=== PATIENT | male | born 1955 | race Caucasian/White ===

== ENCOUNTER 2018-08-09 22:50 | Emergency (ER) | payer MEDICARE ==
[~2018-08-09] VITALS: Ht 185.4 cm; Wt 84.0 kg
[2018-08-09 22:53] VITALS: BP 170/90
== END 2018-08-10 02:31 | disposition home or self-care (01) ==
LOC: ER 22:58
DX: S62.307A Unspecified fracture of fifth metacarpal bone, left hand, initial encounter for closed fracture (principal); M25.551 Pain in right hip; I10 Essential (primary) hypertension; V03.99XA Pedestrian with other conveyance injured in collision with car, pick-up truck or van, unspecified whether traffic or nontraffic accident, initial encounter; Y93.01 Activity, walking, marching and hiking; Y92.89 Other specified places as the place of occurrence of the external cause; Y99.8 Other external cause status; Z98.890 Other specified postprocedural states
CPT/HCPCS: 29125; 73130; 73521; 99283